=== PATIENT | male | born 1940 | race Caucasian/White ===

== ENCOUNTER 2017-05-16 12:29 | Emergency (ER) | payer MEDICARE, OTHER ==
[~2017-05-16] VITALS: Ht 177.8 cm; Wt 70.5 kg
[~2017-05-16 12:29] MED LIST: NOMED
[2017-05-16 12:41] VITALS: BP 150/73; PULSE 75; RESP 16; O2SAT 99
--- NOTE | 2017-05-16 13:28 | ED.REPORT ---
HPI-Rash / Abscess Date of Service May 16, 2017 ED Provider: Arturo Carbajal MD A 76 year old male with a history of staph infection and multiple ED visits for similar symptoms presents to the ED complaining of a rash. The pt noticed this rash three years ago, which has persisted since. The rash is distributed across his body and characterized by redness, though he denies itching, joint pain, or abdominal pain. The pt has been seen by multiple dermatologists, and tried Bactrim, clindamycin and multiple topical steroids without his symptoms resolving. He saw his PCP recently, who "said he should be seen by a specialist. " The pt suspects that his rash is "from his blood" and is requesting an infectious disease specialist. Nursing Notes Stated Complaint: RASHES ON ARMS Chief Complaint: Skin Rash/Abscess Nursing Notes Reviewed: Yes Allergies: Coded Allergies: No Known Allergies (Verified , 05/05/15) Scheduled Mometasone Furoate (Mometasone Furoate) 45 Gm Cream..g. 45 GM TP DAILY Miscellaneous Medications No Historical Medication (No Historical Medication) Ea General Time Seen by MD: 13:28 Chief Complaint Rash Hx Obtained From: Patient Arrived By: Walk-in Onset Occurred: More than a week ago... Symptom Duration: Since onset Recent Healthcare: No recent hospitalization, Recent doctor visit Similar Sx Previous: Yes Past Medical History Past Medical History history of staph infection back injury Past Surgical History Reports: Appendectomy Smoking History Current Every Day Smoker Social History Alcohol Use: Denies alcohol use Ambulatory Status Independent Review of Systems Respiratory: Denies: Non-productive cough, Shortness of breath Cardiovascular: Denies: Chest pain GI: Denies: Abdominal pain, Vomiting Musculoskeletal: Denies: Back pain, Joint pain Skin: Reports Rash, Denies Itching Complete sys rev & neg: except as marked. Physical Exam Initial Vital Signs Vital Signs (First) Date Time Temp Pulse Resp B/P Pulse Ox O2 Delivery O2 Flow Rate FiO2 05/16/17 12:41 36.7 75 16 150/73 99 Room Air Initial VS: Reviewed General/Constitutional: Awake, Alert Skin: Color NL, Warm, Dry diffuse erythema with overlying scaly plaques and excoriations Head / Eyes: Normocephalic, PERRL, EOMI ENT: Atraumatic, Airway patent, Mucous membranes moist Respiratory / Chest: Atraumatic, Breath sounds NL, Breath sounds = bilat, No respiratory distress Cardiovascular: Heart rate NL, Regular rhythm, Heart sounds NL Upper Extremity / MS: Full range of motion, Neurologic intact, Vascular intact Lower Extremity / Pelvis / MS: Full range of motion, Neurologic intact, Vascular intact Neurologic: Oriented X3, Speech NL, No motor deficits, No sensory deficits Neck: Atraumatic, Supple, Full range of motion Abdomen: Atraumatic, Soft, Non-tender Back: Atraumatic, Full range of motion Psychiatric: Affect NL, Mood NL Re-Eval/Medical Decision Med Decision/Clinical Course 76-year-old male presenting with chronic bilateral upper-extremity rash 3 years. He reports it is helped by steroid creams. He is requesting antibiotics which he has had many times in the past. There is no evidence of infection. He does have chronic excoriations and inflammatory changes. There is no evidence of cellulitis at this time. His vital signs are stable. I have refilled his steroid cream and he has been referred to a folder stitcher operator. Return precautions given if any sign symptoms infection or any other new or worsening symptoms. Source of Hx: Old records Re-Evaluation/Progress : Time of Eval: 15:03 Patient Status: Condition improved Re-Evaluation/Progress Note: Pt rechecked, who is comfortable. The diagnosis and plan for discharge are discussed. The pt understands and agrees with the plan. All questions are addressed at this time. Counseled Regarding: Diagnosis, Need for follow-up, When/why to return to ED Discharge & Departure Impression: Primary Impression: Chronic dermatitis Disposition: Home Discharge Condition All VS Reviewed: Yes Condition: Stable Patient Instructions: Dermatitis (ED) Additional Instructions: Thank you for allowing us to be a part of your care. Call the specialist to arrange a follow up appointment next week for further evaluation. Return to the emergency department if you develop any new or concerning symptoms including signs of infections such as redness, discharge or fever. Referrals: Jason Dailey PA-C Scribe Attestation Portions of this note were transcribed by Lima Odonnell. I, Dr. Carbajal personally performed the history, physical exam and medical decision-making; I reviewed and confirmed the accuracy of the information in the transcribed note. copies to: Jason Dailey PA-C, Ben M MD May 16, 2017 13:28 LIMA ODONNELL May 16, 2017 15:06
[2017-05-16] MEDS ORDERED: MOME45CR19 TP (15:03)
[2017-05-16 15:25] VITALS: BP 154/85; PULSE 69; RESP 18; O2SAT 99
== END 2017-05-16 15:28 | disposition home or self-care (01) ==
LOC: SED 12:29
DX: L30.9 Dermatitis, unspecified (principal); F17.200 Nicotine dependence, unspecified, uncomplicated